=== PATIENT | female | born 1965 | race Caucasian/White ===

== ENCOUNTER 2024-03-27 19:07 | Emergency (ER) | payer MEDICARE, MEDICAID, SELFPAY ==
[2024-03-27 20:19] VITALS: BP 119/81; PULSE 90; RESP 16; TEMP 36.6; O2SAT 99; BMI 31.5
--- NOTE | 2024-03-27 20:27 | XR_ITS ---
Examination: CT brain head without contrast. 2-D sagittal coronal reconstructions Date and time of exam:March 27, 2024 at 2058 hrs. Comparison February 26, 2021 Indications: Patient fell one hour ago with injury to the head, head pain CTDI: vol (mGy):48.50 DLP: (mGycm):996 Technique: Multiple CT axial sections of the brain have been obtained, 5 mm slice thickness. Contrast has not been administered. 2-D sagittal, coronal reconstructions have been obtained Low dose protocols were performed. One or more of the following dose reduction techniques were used; automated exposure control, adjustment of the mA and/or KV according to patient size, use of iterative reconstruction technique. Findings: No significant ventricular enlargement. Intra-axial or extra-axial hemorrhage density is not seen. No mass effect or midline shift Basal cisterns are not remarkable. Fourth ventricle is midline. Cranial vault intact. Impression: Negative for acute hemorrhage, mass effect or midline shift
--- NOTE | 2024-03-27 20:27 | XR_ITS ---
Examination: CT cervical spine without contrast 2-D sagittal reconstructions 2-D coronal reconstructions 3-D reconstructions. Exam date and time:March 27, 2024 2100 hrs. Indications: Patient fell one hour ago with injury to the neck, neck pain CTDI:vol (mGy) 14.86 DLP: (mGycm) 352 Technique: Multiple 2 mm axial sections of the cervical spine have been obtained. The coronal and sagittal reconstructions have been obtained. 3-D reconstructions have been obtained. Low dose protocols were performed. One or more of the following dose reduction techniques were used; automated exposure control, adjustment of the mA and/or KV according to patient size, use of iterative reconstruction technique. Findings: Axial sections demonstrate intact base of the skull. C1 exhibit satisfactory relationship to the odontoid. No acute cervical vertebral body fracture seen. Alignment posterior spinous processes satisfactory. Impression: No acute cervical fracture.
--- NOTE | 2024-03-27 20:27 | XR_ITS ---
Examination: Knee, left , 3 views Technique: Knee AP, lateral, oblique 3 views Date and time of exam: 2033. Indications: Patient fell today with injury to the knee, knee pain. Findings: Moderate osteopenia Moderate narrowing medial joint space No fracture or dislocation Small to moderate knee effusion Impression: No fracture Small to moderate knee effusion
--- NOTE | 2024-03-27 20:27 | PD.EDRME ---
Rapid Medical Screening Exam RME Arrival date/time: 03/27/24 19:07 58-year-old female with past medical history of Parkinson's disease, seizures, asthma, obstructive bowel, GERD, renal disease, kidney stones,DM 2, hypothyroidism, schizophrenia, bipolar disorder, recreational drug use, presents emergency department complaining of left knee pain after fall in the bathroom with no LOC. Chief Complaint: Fall Time Seen by Provider: 03/27/24 20:19 Vital signs: Vital Signs Temperature 98 F 03/27/24 20:19 Pulse Rate 90 03/27/24 20:19 Respiratory Rate 16 03/27/24 20:19 Blood Pressure 119/81 03/27/24 20:19 Pulse Oximetry (%) 99 03/27/24 20:19 Oxygen Delivery Method Room Air 03/27/24 20:19 Vital signs reviewed by provider: Yes
--- NOTE | 2024-03-27 21:58 | EDNOTE_ITS ---
ED Fall Injury RME/HPI General Chief Complaint: Fall Stated Complaint: FALL Time Seen by Provider: 03/27/24 20:19 Arrival date/time: 03/27/24 19:07 RME / HPI RME / HPI Narrative: 03/27/24 19:07 58-year-old female with past medical history of Parkinson's disease, seizures, asthma, obstructive bowel, GERD, renal disease, kidney stones,DM 2, hypothyroidism, schizophrenia, bipolar disorder, recreational drug use, presents emergency department complaining of left knee pain after fall in the bathroom with no LOC. ----- Dr. Bertrand's Main ED Evaluation: 58yo female DESIRE from [facility] presents to the ED for a fall. Patient states she was walking through the doorway when she felt dizzy and fell forward, hitting her left knee. She endorses having left knee pain. She denies any head strikes or loss of consciousness. She denies any N/V, headache, neck pain, chest pain, abdominal pain, back pain or any other associated symptoms. She denies any tobacco or alcohol use. Patient does not know when her last tetanus shot was. PCP: [facility] Related Data Home Medications ?Medication ?Instructions ?Recorded ?Confirmed benztropine 0.5 mg tablet 1 mg PO BID 08/06/19 02/27/21 oxybutynin chloride 10 mg 5 mg PO HS 08/06/19 02/27/21 tablet,extended release 24 hr omeprazole 20 mg tablet,delayed 20 mg PO QDAY 04/14/20 02/27/21 release atorvastatin 10 mg tablet (Lipitor) 10 mg PO QDAY 02/27/21 02/27/21 cholecalciferol (vitamin D3) 50 50 mcg PO QDAY 02/27/21 02/27/21 mcg (2,000 unit) capsule (Vitamin D3) clonazepam 1 mg tablet 1 mg PO BID 02/27/21 02/27/21 divalproex 500 mg tablet,extended 500 mg PO BID 02/27/21 02/27/21 release 24 hr haloperidol 10 mg tablet 10 mg PO QDAY PRN Agitation 02/27/21 02/27/21 ibuprofen 200 mg tablet 200 mg PO BID PRN Pain 02/27/21 02/27/21 levothyroxine 112 mcg tablet 100 mcg PO ACBR 02/27/21 02/27/21 lithium carbonate 300 mg capsule 300 mg PO HS 02/27/21 02/27/21 lurasidone 120 mg tablet (Latuda) 120 mg PO QDAY 02/27/21 02/27/21 lurasidone 20 mg tablet (Latuda) 20 mg PO HS 02/27/21 02/27/21 terbinafine HCl 250 mg tablet 250 mg PO QDAY 02/27/21 02/27/21 Previous Rx's ?Medication ?Instructions ?Recorded esomeprazole magnesium 20 mg 20 mg PO QDAY #20 caps 01/02/22 capsule,delayed release (Nexium) ibuprofen 600 mg tablet 600 mg PO Q6H #30 tabs 09/05/22 Allergies Allergy/AdvReac Type Severity Reaction Status Date / Time Sulfa (Sulfonamide Allergy Mild FACIAL Verified 03/27/24 19:23 Antibiotics) SWELLING Review of Systems Review of Systems Systems Reviewed: All systems reviewed, normal except as documented Narrative Review of Systems: Gen: No fever, no chills, no weight loss EYES: No discharge, no visual changes, no pain HEENT: No ear pain, no congestion, no sore throat PULM: No shortness of breath, no cough, no congestion CV: No chest pain, no dyspnea on exertion, no palpitations GI: No nausea, no vomiting, no diarrhea, no pain, no constipation : No frequency, no urgency, no dysuria Musc/skel: No joint pain, no back pain Skin: No rash. Warm and dry. Psyc: No hallucinations, no depression Heme/Lymph: No easy bleeding or bruising tendencies Neuro: No weakness, no headache , + dizziness Past Medical History Past Medical History NEUROLOGIC: Positive Neurological Disorders, Parkinson's Disease and Seizures; Negative Cerebrovascular Accident, Transient Ischemic Attacks (TIA), Dementia, Alzheimer's Disease, Brain Tumor, Meningitis, Epilepsy, Multiple Sclerosis, Ce rebral Palsy, Amyotrophic Lateral Sclerosis (ALS/Sully Gehrig's), Guillain-Richland Syndrome, Spina Bifida, Paralysis, Peripheral Neuropathy, Garcia's Palsy, Subdural Hematoma, Migraine, Head Trauma, Spinal Cord Injury or Traumatic Brain Injury CARDIAC: Positive Hypotension; Negative Cardiac Disorders, Myocardial Infarction, Cardiac Arrhythmia, Atrial Fibrillation, Angina, Heart Murmur, Coronary Artery Disease, Atherosclerotic Heart Disease, Peripheral Vascular Disease, Hypercholesterolemia, Aneurysm, Congestive Heart Failure, Congenital Heart Disease, Valvular Heart Disease, Rheumatic Fever, Cardiomyopathy, Edema, Pericarditis, Cellulitis, Deep Vein Thrombosis, Hypertension or Varicose Veins RESPIRATORY: Negative Chronic Obstructive Pulmonary Disease (COPD), Asthma, Bronchitis, Emphysema, Pneumonia, Pulmonary Fibrosis, Cystic Fibrosis, Tuberculosis, Pulmonary Embolism, Pulmonary Edema or Sleep Apnea GASTROINTESTINAL: Positive Gastrointestinal Disorders, Gall Bladder Disease, Obstructive Bowel and Gastroesophageal Reflux Disease; Negative Hepatitis, Cirrhosis, Pancreatitis, Celiac Disease, Gastrointestinal Bleed, Esophageal Varices, Maloney's Esophagus, Colitis, Ulcerative Colitis, Diverticulitis, Diverticulosis, Ulcer, Colorectal Cancer, Irritable Bowel, Crohn's Disease, Hiatal Hernia, Hemorrhoids or Obesity GENITOURINARY: Positive Genitourinary Disorders and Kidney Stones; Negative Renal Disease, Polycystic Kidney Disease, Neurogenic Bladder, Inguinal Hernia, Dialysis, Prostate Cancer or Benign Prostatic Hyperplasia REPRODUCTIVE: Negative Breast Cancer, Endometriosis, Genital Herpes, Gonorrhea, Pelvic Inflammatory Disease, Previous Pregnancies, Syphilis, Testicular Cancer or Uterine Prolapse MUSCULOSKELETAL: Positive Musculoskeletal Disorders and Arthritis; Negative Muscular Dystrophy, Myasthenia Gravis, Marfan's Syndrome, Bone Cancer, Rheumatoid Arthritis, Osteoporosis, Degenerative Disk Disease, Gout, Scoliosis, Carpal Tunnel Syndrome, Fibromyalgia, Fractures, Degenerative Joint Disease, Osteomyelitis or Poliovirus ENT: Negative Cataracts, Glaucoma, Blind, Retinal Detachment, Macular Degeneration, Ear Infection, Deafness, Head Trauma or Eye Prosthesis ENDOCRINE: Positive Endocrine Disorders and Hypothyroidism; Negative Diabetes Mellitus Type 1, Diabetes Mellitus Type 2, Hypoglycemia, Anthony's Syndrome, Nez Perce's Disease, Hyperthyroidism, Parathyroid Disease, Pituitary Disease, Systemic Lupus Erythematosus, Syndrome of Inappropriate Antidiuretic Hormone (SIADH), Adrenal Disease or Graves' Disease HEMATOLOGIC: Negative Blood Disorders, Anemia, Leukemia, Hemophilia, Thalassemia, Sickle Cell Disease or Clotting Problems PSYCHO/SOCIAL: Positive Psychiatric Problems, Schizophrenia, Recreational Drug Use, Bipolar Disorder and Behavior Problems; Negative Depression, Anxiety, Self-Mutilation, Attention Deficit Disorder, Attention Deficit Hyperactivity Disorder, Depression, Post Traumatic Stress Disorder or Eating Disorder OTHER HISTORY: Positive Hospitalization and Falls; Negative Autoimmune Disease, Down Syndrome, Autism, Developmental Delay, Shingles, Blood Transfusions, Blood Transfusion Reaction, Anesthesia Reactions, Organ Transplant, Chemotherapy, Radiation Therapy, Hyperbaric Therapy, MRSA, VRSA, Vancomycin-Resistant Enterococci, Human Immunodeficiency Virus (HIV), Chicken Pox, Measles, Mumps, Rubella (Icelandic Measles), Pertussis, Clostridium Difficile, Cancer, Breast Cancer, Cervical Cancer, Colorectal Cancer, Lung Cancer, Ovarian Cancer, Prostate Cancer or Testicular Cancer Family History FAMILY HISTORY: Positive Family Cardiac Disorders and Family Cancer; Negative Family Psychiatric Problems, Family Respiratory Disorders, Family Gastrointestinal Problems, Family Surgery or Family Anesthesia Reaction Surgical History SURGICAL: Positive Abdominal Surgery and Tubal Ligation; Negative Cardiac Surgery, Open Heart Surgery, Coronary Artery Bypass Graft, Valve Replacement, Vascular Surgery, Coronary Stent, Cardiac Catheterization, Pacemaker, Angiogram, Auto Implanted Cardiovert Defib, Carotid Endarterectomy, Endocrine Surgery, Thyroidectomy, Ear Surgery, Tympanostomy Tube, Eye Surgery, Nose Surgery, Oral Surgery, Tonsillectomy, Adenoidectomy, Cochlear Implant, Corneal Transplant, Throat Surgery, Tracheostomy, Gastric Bypass Surgery, Gastrostomy, Bowel Surgery, Nephrectomy, Transurethral Resection, Joint Replacement, Amputation, Open Reduction Internal Fixation, Arthroscopy, Neurologic Surgery, Brain Shunt, Mastectomy, Lumpectomy, Hysterectomy, Section, Vasectomy or Organ Transplant Social History SMOKING STATUS: Never smoker SECOND HAND EXPOSURE: No SUBSTANCE USE: does not use ED Exam Narrative Physical exam: GEN. APPEARANCE: Patient is alert awake oriented x3 under no distress, laying down comfortably at 30-45?; does not look ill/ toxic. Patient has good eye contact. Patient is cooperative. Patient is a typical bipolar schizophrenic and tries her best to answer my questions accurately. VITALS: All vitals were reviewed and the pulse ox is 99% on room air, which is normal according to my interpretation. HEENT: Normocephalic, atraumatic and nontender. Pupils are equal and reactive to light and accommodation. Oral mucosa are moist. NECK: Supple, nontender, no meningismus, no JVD. CHEST: Nontender on palpation, no deformity and no crepitus. CARDIOVASCULAR: Heart regular rhythm no murmur or gallop rub or extra beats; not tachycardic. LUNGS: Clear to auscultation bilaterally with symmetrical chest rise. No laboring tachypnea or wheezing. No intercostal subcostal retraction. No rales and no rhonchi. ABDOMEN: Soft, flat, nontender at all, no guarding or rebound tenderness. There are no abnormal masses palpated. No pulsatile masses or bruits. Active and normal bowel sounds. GENITALIA: Not examined. RECTAL EXAM: Not done. EXTREMITIES: Nontender. No edema. No cyanosis. There's a quarter-sized abrasion on the anterior left knee with poor ROM, but no significant soft tissue swelling, redness or warmness. SKIN: Warm and dry, no rashes noted. MUSCULOSKELETAL: No lumbar or midline bony tenderness. There is no CVA tenderness. No paraspinal muscle spasm or tenderness. NEURO: Cranial nerves II through XII grossly intact. There is no focalization. GCS is 15. PSYCHIATRIC: Patient is in normal mood and affect, cooperative. LYMPHATICS: No major lymphadenopathy noted. Course Quality Measures none Orders Category Date Time Status CT cervical spine wo con Stat Exams 03/27/24 20:[address] head/brain wo con Stat Exams 03/27/24 20: Completed XR knee LT 3V Stat Exams 03/27/24 20: Completed Tet,Diphth,Pertuss(Acell)-Tdap [Boostrix Vacc] Med 03/27/24 22:10 Discontinued 0.5 ml IMI .ONCE ONE Vital Signs Vital signs: Vital Signs Temperature 98 F 03/27/24 20:19 Pulse Rate 90 03/27/24 20:19 Respiratory Rate 16 03/27/24 20:19 Blood Pressure 119/81 03/27/24 20:19 Pulse Oximetry (%) 99 03/27/24 20:19 Oxygen Delivery Method Room Air 03/27/24 20:19 Fall MDM Narrative MDM Narrative:: Scribe Attestation: 03/27/24 Mirian Mendes am scribing for and in the presence of Dr. Bertrand. Patient states that she got dizzy and then she fell forward with no loss of consciousness. She remembers all the facts. This happened at [facility] just prior to arrival. She denies loss of consciousness or loss of memory. She did not hit her head nor she has a headache. She denies any neck pain. She denies any chest pain or abdominal pain or lower back pain. She does complain of left knee pain where there is a quarter size abrasion on the anterior aspect without active bleed. There is no soft tissue swelling or deformity. N/V is intact and she moves her knee without any hesitation or difficulty. The triage PA had ordered a CAT scan of the brain as well as C-spine which came back all negative according to the radiologist. He had also ordered a left knee x-ray which was also read negative by the radiologist. Therefore we will screen that 1 then put a thin layer of Neosporin on it and bandaged. She will be getting a tetanus shot as well. Provider Notation: Although this document has been carefully reviewed, there may still be some phonetic and other typographical errors. These errors are purely grammatical due to imperfections in the software program and should not be construed in any way to compromise the substance of the patient's medical care during this visit. Patient data External records reviewed:: [facility] previous records (Per chart review, patient was seen here on 09/17/23 for schizophrenia.) Clinical information provided by:: patient Social determinants that could affect healthcare access:: housing (Pt resides at a [facility] care [facility] Patient has the following chronic illnesses:: Parkinson's disease, GERD, schizophrenia How is presenting disease/condition affected by chronic disease/condition?: uneffected by Evaluation data The following diagnostics were reviewed and interpreted by me:: radiology exam(s) Lab and/or radiology exams considered but not ordered:: none Interpretation Summary: [facility] Report Signed Patient: MICHELLE SAXENA Record#: [id number] Birthdate: 1965 Age/Sex: 58 / F Location: [facility] Attending Dr: Ordering Physician: Olga BENOIT)Luke Date of Service: 03/27/24 Procedure(s): CT cervical spine wo con Accession Number(s): [id number] cc: Juan Ramon Ly DO; Toni Hall MD; Olga Hawkins (RAMONA)Luke~ Examination: CT cervical spine without contrast 2-D sagittal reconstructions 2-D coronal reconstructions 3-D reconstructions. Exam date and time:March 27, 2024 2100 hrs. Indications: Patient fell one hour ago with injury to the neck, neck pain CTDI:vol (mGy) 14.86 DLP: (mGycm) 352 Technique: Multiple 2 mm axial sections of the cervical spine have been obtained. The coronal and sagittal reconstructions have been obtained. 3-D reconstructions have been obtained. Low dose protocols were performed. One or more of the following dose reduction techniques were used; automated exposure control, adjustment of the mA and/or KV according to patient size, use of iterative reconstruction technique. Findings: Axial sections demonstrate intact base of the skull. C1 exhibit satisfactory relationship to the odontoid. No acute cervical vertebral body fracture seen. Alignment posterior spinous processes satisfactory. Impression: No acute cervical fracture. Dictated By: Toni Hall MD Signed By: <Electronically signed by Toni Hall MD in OV> 03/27/242116 [facility] Report Signed Patient: MICHELLE SAXENA. Record#: [id number] Birthdate: 1965 Age/Sex: 58 / F Location: [facility] Attending Dr: Ordering Physician: Olga Hawkins (RAMONA)Luke Date of Service: 03/27/24 Procedure(s): CT head/brain wo con Accession Number(s): [id number] cc: Juan Ramon Ly DO; Toni Hall MD; Olga Hawkins ([employer]),Luke RGEENE~ Examination: CT brain head without contrast. 2-D sagittal coronal reconstructions Date and time of exam:March 27, 2024 at 2058 hrs. Comparison February 26, 2021 Indications: Patient fell one hour ago with injury to the head, head pain CTDI: vol (mGy):48.50 DLP: (mGycm):996 Technique: Multiple CT axial sections of the brain have been obtained, 5 mm slice thickness. Contrast has not been administered. 2-D sagittal, coronal reconstructions have been obtained Low dose protocols were performed. One or more of the following dose reduction techniques were used; automated exposure control, adjustment of the mA and/or KV according to patient size, use of iterative reconstruction technique. Findings: No significant ventricular enlargement. Intra-axial or extra-axial hemorrhage density is not seen. No mass effect or midline shift Basal cisterns are not remarkable. Fourth ventricle is midline. Cranial vault intact. Impression: Negative for acute hemorrhage, mass effect or midline shift Dictated By: Toni Hall MD Signed By: <Electronically signed by Toni Hall MD in OV> 03/27/242114 ------ [facility] Report Signed Patient: MICHELLE SAXENA. Record#: [id number] Birthdate: 1965 Age/Sex: 58 / F Location: [facility] Attending Dr: Ordering Physician: Olga BENOIT)Luke Date of Service: 03/27/24 Procedure(s): XR knee LT 3V Accession Number(s): [id number] cc: Juan Ramon Ly DO; Toni Hall MD; Olga BENOIT),Luke GREENE~ Examination: Knee, left , 3 views Technique: Knee AP, lateral, oblique 3 views Date and time of exam: 2033 hrs. Indications: Patient fell today with injury to the knee, knee pain. Findings: Moderate osteopenia Moderate narrowing medial joint space No fracture or dislocation Small to moderate knee effusion Impression: No fracture Small to moderate knee effusion Dictated By: Toni Hall MD Signed By: <Electronically signed by Toni Hall MD in OV> 03/27/242123 Medications / Prescriptions Medications or Prescriptions considered but not ordered:: none Medication administrations:: Medication Administration History Discontinued Medications Diphtheria/Tetanus/Acell Pertussis (Diphth,Pertuss(Acell),Tet Vac 0.5 Ml Vial) 0.5 ml IMi .ONCE ONE Stop: 03/27/24 22:11 see above, if any Consultations Consultation(s) initiated? (list below): No Diagnosis Fall Differential Diagnosis: other (ICH, cervical fx, knee fx, knee dislocation) Most likely diagnosis given after review of the tests above:: see below Admission Indicated Admission indicated?: not indicated Admission Request Was there a request for admission?: No Disposition Plan Disposition Plan: Discharge Discharge Attestation Discharge Attestation: The patient and all family members were given an opportunity to ask questions and understood the discharge instructions. Discharge instructions specifically effects, indications for sooner follow up or return to the emergency department, and the expected course of current diagnosis. Patient condition: Stable Discharge Plan Plan Patient Disposition: HOME (Self Care) Prescriptions/Referrals Prescriptions/Med Rec: No Action benztropine 0.5 mg Tablet 1 mg PO BID oxybutynin chloride 10 mg Tablet Extended Release 24hr 5 mg PO HS omeprazole 20 mg Tablet,Delayed Release (Dr/Ec) 20 mg PO QDAY atorvastatin [Lipitor] 10 mg Tablet 10 mg PO QDAY clonazepam 1 mg Tablet 1 mg PO BID terbinafine HCl 250 mg Tablet 250 mg PO QDAY lithium carbonate 300 mg Capsule 300 mg PO HS divalproex 500 mg Tablet Extended Release 24 Hr 500 mg PO BID haloperidol 10 mg Tablet 10 mg PO QDAY PRN (Reason: Agitation) ibuprofen 200 mg Tablet 200 mg PO BID PRN (Reason: Pain) cholecalciferol (vitamin D3) [Vitamin D3] 50 mcg (2,000 unit) Capsule 50 mcg PO QDAY Latuda 20 mg Tablet 20 mg PO HS Latuda 120 mg Tablet 120 mg PO QDAY levothyroxine 112 mcg tablet 100 mcg PO ACBR esomeprazole magnesium [Nexium] 20 mg capsule,delayed release(DR/EC) 20 mg PO QDAY Qty: 20 0RF ibuprofen 600 mg tablet 600 mg PO Q6H Qty: 30 0RF Referrals: Juan Ramon Ly DO [Primary Care Provider] - 03/30/24 10:00 am Problem List Clinical Impression: Schizophrenia, Seizure disorder, Bipolar 1 disorder, Contusion of knee, left, Abrasion of knee, left Patient/Caregiver Discharge Instructions Education Materials: ED Abrasions Additional Instructions: Apply a thin layer of Neosporin to the abrasion of your left knee twice a day. You may keep it covered during the daytime but at night you need to keep it open to air. Follow-up with your doctor in 2 days for recheck and tell them that you have gotten a tetanus shot here today. Print Language: Italian Stand Alone Forms: Geraldine Award Info., Patient Portal Info Letter Vaccines Vaccines Given During Stay: TDaP
[2024-03-27 22:26] VITALS: BP 112/80; PULSE 82; RESP 18; TEMP 36.7; O2SAT 98
[2024-03-27] MEDS: DIPHTH,PERTUSS(ACELL),TET VAC 0.5 ML VIAL IMi (22:26)
== END 2024-03-27 22:53 | disposition home or self-care (01) ==
PROVIDERS: Emergency Provider Emergency Medicine; PCP Psychiatry & Neurology Psychiatry
DX: S80.212A Abrasion, left knee, initial encounter (principal); S80.02XA Contusion of left knee, initial encounter; F31.9 Bipolar disorder, unspecified; F20.9 Schizophrenia, unspecified; R56.9 Unspecified convulsions; S09.90XA Unspecified injury of head, initial encounter; S19.9XXA Unspecified injury of neck, initial encounter; W19.XXXA Unspecified fall, initial encounter; Y93.01 Activity, walking, marching and hiking; Z23 Encounter for immunization
CPT/HCPCS: 70450; 72125; 73562; 90471; 90715; 99284

== ENCOUNTER 2024-04-14 03:50 | Emergency (ER) | payer MEDICARE, MEDICAID, SELFPAY ==
[2024-04-14 03:51] VITALS: PULSE 94; O2SAT 96
[2024-04-14 03:56] VITALS: BP 116/83; PULSE 90; RESP 18; TEMP 36.7; O2SAT 99; BMI 29.2
--- NOTE | 2024-04-14 04:05 | EDRME_ITS ---
Rapid Medical Screening Exam [facility] Arrival date/time: 04/14/24 03:50 58F with history of Parkinson's, seizures, asthma, SBo, GERD, CKD, DM, hypothyroidism, psyc, drug/alcohol abuse and tubal ligation presents to ED with vaginal/rectal itching/burning and pain after she's scratched at them a lot. Possible dysuria. Chief Complaint: Urogenital-Female Vital signs: Vital Signs Temperature 98.1 F 04/14/24 03:56 Pulse Rate 90 04/14/24 03:56 Respiratory Rate 18 04/14/24 03:56 Blood Pressure 116/83 04/14/24 03:56 Pulse Oximetry (%) 99 04/14/24 03:56 Oxygen Delivery Method Room Air 04/14/24 03:56
[2024-04-14 05:07] LABS: Collection Type, Urine Clean Catch; RBC,Urine 0 /hpf (0-3)
[2024-04-14 05:15] LABS: Basophils % (Auto) 0 % (0-2.5); Eosinophils % (Auto) 0 % (0-10); Hematocrit 34.9 % (36.0-46.0); Hemoglobin 11.2 g/dL (12.0-16.0); Immature Granulocytes % (Auto) 1 % (0-0); Immature Granulocytes Auto 0.08 Thou/mm3 (0.00-0.00); Lymphocytes # (Auto) 2.1 Thou/mm3 (1.0-4.8); Lymphocytes % (Auto) 35 % (10-50); Mean Corpuscular HGB Conc 32.1 g/dl (31.0-37.0); Mean Corpuscular Hemoglobin 28.3 pg (25.0-35.0); Mean Corpuscular Volume 88 fL (80-100); Monocytes # (Auto) 0.5 Thou/mm3 (0.0-0.8); Monocytes % (Auto) 8 % (0-12); Neutrophils # (Auto) 3.3 Thou/mm3 (1.8-7.7); Neutrophils % (Auto) 55 % (37-80); Nucleated Red Blood Cell % 0 /100 WBC (0); Platelet Count 309 Thou/mm3 (140-440); RDW Standard Deviation 47.9 fL (36.4-46.3); Red Blood Count 3.96 Miln/mm3 (4.00-5.20)
[2024-04-14 05:29] LABS: Bacteria,Urine Rare; Bilirubin,Urine Negative (Negative); Blood,Urine Negative (Negative); Clarity,Urine Turbid (Clear/Hazy); Color,Urine Yellow (Lt Yel-Yel); Culture Indicated,Urine Not Indicated; Glucose, Urine Negative (Negative); Ketones,Urine Negative (Negative); Leukocyte Esterase,Urine Positive (Negative); Nitrite,Urine Negative (Negative); Protein,Urine Trace (Neg - Trace); Specific Gravity,Urine 1.023 (1.001-1.035); Squamous Epithelial Cell,Urine 1 /hpf (0-5); Urobilinogen,Urine Negative mg/dL (0.0-1.0); WBC,Urine 2 /hpf (0-5)
[2024-04-14 05:30] LABS: Amphetamine/Methamp Scrn,U Negative (Negative); Barbiturate Screen,Urine Negative (Negative); Benzodiazepines Screen,Urine Negative (Negative); Benzoylecgonine Screen, Ur Negative (Negative); Fentanyl Screen,Urine Negative (Negative); Opiate Screen,Urine Negative (Negative); THC Screen,Urine Negative (Negative)
[2024-04-14 05:51] LABS: Alanine Aminotransferase 10 U/L (10-49); Albumin, Serum 4.6 gm/dL (3.5-5.0); Albumin/Globulin Ratio 2.2 (1.2-2.2); Alkaline Phosphatase 93 U/L (46-116); Anion Gap 8 (7-16); Aspartate Amino Transferase 18 U/L (0-34); BUN/Creatinine Ratio 20 Ratio (12-20); Bilirubin,Total 0.2 mg/dL (0.3-1.2); Blood Urea Nitrogen 18 mg/dL (9-23); Calcium 9.2 mg/dL (8.3-10.6); Calcium (Corrected) 9.2 mg/dL (8.5-10.1); Carbon Dioxide 27.3 mMol/L (20.0-31.0); Chloride 108 mMol/L (98-107); Creatinine (Component) 0.9 mg/dL (0.6-1.3); Estimated Creatinine Clearance 60.4 mL/min (>60); Globulin 2.1 gm/dL (2.3-3.5); Glucose 105 mg/dL (74-106); Osmolality,Calculated 286 (275-295); Potassium 4.3 mMol/L (3.4-5.1); Sodium 143 mMol/L (136-145); Total Protein 6.7 gm/dL (5.7-8.2); eGFR > 60 See Note
[2024-04-14 06:09] LABS: Syphilis Nonreactive (Nonreactive)
[2024-04-14 07:15] VITALS: BP 119/81; PULSE 82; RESP 18; TEMP 36.7; O2SAT 99
--- NOTE | 2024-04-14 07:17 | PC.NURSE ---
Pt. resting in bed in room 11, pt. states she is here from [facility], pt. states the food there made her sick. Pt. states she usually walks with a walker. Pt. states she has burning when she urinates and a little bit of blood when she pooped. Pt. states they gave her the wrong toilet paper and it had perfume on it. Pt. states she has schizophrenia.
--- NOTE | 2024-04-14 08:04 | PC.NURSE ---
Pt. cleaned and brief changed, pt. has skin breakdown just below her labia and to her buttocks and around her anus. Pt. states she put Vaseline down there because she was itching and felt like she had worms. Pt. states it washburn when she urinates. Pt. states there was a little blood when she pooped.
--- NOTE | 2024-04-14 08:10 | PC.NURSE ---
Dr. Neville is bedside talking with pt.
--- NOTE | 2024-04-14 08:26 | PD.EDFMALE ---
ED Female Urogenital RME/HPI General Chief complaint: Urogenital-Female Stated complaint: Vaginal/rectal burning Time Seen by Provider: 04/14/24 05:03 Arrival date/time: 04/14/24 03:50 Limitations: no limitations RME / HPI RME / HPI Narrative: 04/14/24 03:50 58F with history of Parkinson's, seizures, asthma, SBo, GERD, CKD, DM, hypothyroidism, psyc, drug/alcohol abuse and tubal ligation presents to ED with vaginal/rectal itching/burning and pain after she's scratched at them a lot. Possible dysuria. DR. NEVILLE MAIN ED EVALUATION: 58 year old female with history of Parkinson's disease, hyperlipidemia, hypothyroidsm, GERD, schizophrenia presents to the ED [facility] from [facility] for complaint of vaginal/rectal burning pain today. States vaginal pain is worse while urinating. Additionally reports she had a small amount of blood in stool today which she noted began after poking her rectum due to itching sensation and I though I had worms . No other complaints reported. Denies fevers, chills, abdominal pain, n/v. Related Data Home Medications ?Medication ?Instructions ?Recorded ?Confirmed benztropine 0.5 mg tablet 1 mg PO BID 08/06/19 02/27/21 oxybutynin chloride 10 mg 5 mg PO HS 08/06/19 02/27/21 tablet,extended release 24 hr omeprazole 20 mg tablet,delayed 20 mg PO QDAY 04/14/20 02/27/21 release atorvastatin 10 mg tablet (Lipitor) 10 mg PO QDAY 02/27/21 02/27/21 cholecalciferol (vitamin D3) 50 50 mcg PO QDAY 02/27/21 02/27/21 mcg (2,000 unit) capsule (Vitamin D3) clonazepam 1 mg tablet 1 mg PO BID 02/27/21 02/27/21 divalproex 500 mg tablet,extended 500 mg PO BID 02/27/21 02/27/21 release 24 hr haloperidol 10 mg tablet 10 mg PO QDAY PRN Agitation 02/27/21 02/27/21 ibuprofen 200 mg tablet 200 mg PO BID PRN Pain 02/27/21 02/27/21 levothyroxine 112 mcg tablet 100 mcg PO ACBR 02/27/21 02/27/21 lithium carbonate 300 mg capsule 300 mg PO HS 02/27/21 02/27/21 lurasidone 120 mg tablet (Latuda) 120 mg PO QDAY 02/27/21 02/27/21 lurasidone 20 mg tablet (Latuda) 20 mg PO HS 02/27/21 02/27/21 terbinafine HCl 250 mg tablet 250 mg PO QDAY 02/27/21 02/27/21 Previous Rx's ?Medication ?Instructions ?Recorded esomeprazole magnesium 20 mg 20 mg PO QDAY #20 caps 01/02/22 capsule,delayed release (Nexium) ibuprofen 600 mg tablet 600 mg PO Q6H #30 tabs 09/05/22 nitrofurantoin 100 mg PO Q12H 7 days #14 caps 04/14/24 monohydrate/macrocrystals 100 mg capsule (Macrobid) phenazopyridine 200 mg tablet 200 mg PO TID 6 doses #6 tabs 04/14/24 (Pyridium) Allergies Allergy/AdvReac Type Severity Reaction Status Date / Time Sulfa (Sulfonamide Allergy Mild FACIAL Verified 04/14/24 03:53 Antibiotics) SWELLING Review of Systems Review of Systems Narrative Review of Systems: GEN: No fever, no chills, no weight loss EYES: No discharge, no visual changes, no pain HEENT: No ear pain, no congestion, no sore throat PULM: No shortness of breath, no cough, no congestion CV: No chest pain, no dyspnea on exertion, no palpitations GI: No nausea, no vomiting, no diarrhea, no pain, no constipation : +rectal and vaginal burning pain, worse with urinating. No frequency, no urgency, no dysuria MUSC/SKEL: No joint pain, no back pain SKIN: No rash NEURO: No weakness, no headache Past Medical History Past Medical History NEUROLOGIC: Positive Neurological Disorders, Parkinson's Disease and Seizures CARDIAC: Positive Hypotension GASTROINTESTINAL: Positive Gastrointestinal Disorders, Gall Bladder Disease and Obstructive Bowel GENITOURINARY: Positive Genitourinary Disorders and Kidney Stones MUSCULOSKELETAL: Positive Musculoskeletal Disorders and Arthritis ENDOCRINE: Positive Endocrine Disorders and Hypothyroidism PSYCHO/SOCIAL: Positive Psychiatric Problems, Schizophrenia, Recreational Drug Use, Bipolar Disorder and Behavior Problems OTHER HISTORY: Positive Hospitalization and Falls Family History FAMILY HISTORY: Positive Family Cardiac Disorders and Family Cancer Surgical History SURGICAL: Positive Abdominal Surgery and Tubal Ligation Social History SMOKING STATUS: Former smoker SECOND HAND EXPOSURE: No SUBSTANCE USE: does not use ED Exam General Limitations: Present no limitations General appearance: Present alert and in no apparent distress Head Head exam: Present atraumatic, normocephalic and normal inspection Eye Eye exam: Present normal appearance, PERRL and EOMI ENT ENT exam: Present normal exam, normal oropharynx and mucous membranes moist Neck Neck exam: Present normal inspection, full ROM and trachea midline Chest Chest inspection: Present normal inspection and symmetric chest wall rise Respiratory Respiratory exam: Present normal lung sounds bilaterally Cardiovascular Cardiovascular exam: Present regular rate, normal rhythm and normal heart sounds Abdominal Exam Abdominal exam: Present soft and normal bowel sounds External exam: Present other (There is skin breakdown to the perineal area as well as perineum and medial thighs, no active bleeding ) Extremities Exam Extremities exam: Present normal inspection and full ROM Back Exam Back exam: Present normal inspection and full ROM Neurological Exam Neurological exam: Present alert, oriented X3 and CN II-XII intact Psychiatric Psychiatric exam: Present normal affect and normal mood Skin Skin exam: Present warm, dry, intact and normal color Course Quality Measures none Orders Category Date Time Status CBC Stat Lab 04/14/24 04:33 Completed CMP [Comprehensive Metabolic Panel] Stat Lab 04/14/24 04:33 Completed Drug Screen,Urine Stat Lab 04/14/24 04:22 Completed Syphilis Stat Lab 04/14/24 04:33 Completed Urinalysis, C/S if Indicated Stat Lab 04/14/24 04:22 Completed Vital Signs Vital signs: Vital Signs Temperature 98.1 F 04/14/24 03:56 Pulse Rate 90 04/14/24 03:56 Respiratory Rate 18 04/14/24 03:56 Blood Pressure 116/83 04/14/24 03:56 Pulse Oximetry (%) 99 04/14/24 03:56 Oxygen Delivery Method Room Air 04/14/24 03:56 Pulse ox is 99% on room air which is adequate. Urogenital - Female MDM Narrative MDM Narrative:: Roopa Mckee am scribing for and in the presence of Dr. Neville. Patient data External records reviewed:: [facility] previous records (I reviewed ED visit on 03/27/2024 ) and EMS form Clinical information provided by:: patient Social determinants that could affect healthcare access:: mental health Patient has the following chronic illnesses:: Parkinson's disease, hyperlipidemia, hypothyroidsm, GERD, schizophrenia How is presenting disease/condition affected by chronic disease/condition?: uneffected by Evaluation data The following diagnostics were reviewed and interpreted by me:: lab results Lab and/or radiology exams considered but not ordered:: None Interpretation Summary: No elevtaed WBC Electrolytes WNL Utox negative Medications / Prescriptions Medications or Prescriptions considered but not ordered:: None Medication administrations:: None Consultations Consultation(s) initiated? (list below): No Diagnosis Urogenital Female Differential Diagnosis: urinary tract infection, bacterial vaginosis and cystitis Most likely diagnosis given after review of the tests above:: UTI Skin breakdown Admission Indicated Admission indicated?: not indicated Admission Request Was there a request for admission?: No Disposition Plan Disposition Plan: Discharge Discharge Attestation Discharge Attestation: The patient and all family members were given an opportunity to ask questions and understood the discharge instructions. Discharge instructions specifically effects, indications for sooner follow up or return to the emergency department, and the expected course of current diagnosis. Patient condition: Stable Discharge Plan Plan Patient Disposition: HOME (Self Care) Disposition Comment: Stable for discharge Patient condition on transfer: Stable Prescriptions/Referrals Prescriptions/Med Rec: New nitrofurantoin monohyd/m-cryst [Macrobid] 100 mg capsule 100 mg PO Q12H 7 Days Qty: 14 0RF Rx Instructions: must administer with a meal/food phenazopyridine [Pyridium] 200 mg tablet 200 mg PO TID Qty: 6 0RF No Action benztropine 0.5 mg Tablet 1 mg PO BID oxybutynin chloride 10 mg Tablet Extended Release 24hr 5 mg PO HS omeprazole 20 mg Tablet,Delayed Release (Dr/Ec) 20 mg PO QDAY atorvastatin [Lipitor] 10 mg Tablet 10 mg PO QDAY clonazepam 1 mg Tablet 1 mg PO BID terbinafine HCl 250 mg Tablet 250 mg PO QDAY lithium carbonate 300 mg Capsule 300 mg PO HS divalproex 500 mg Tablet Extended Release 24 Hr 500 mg PO BID haloperidol 10 mg Tablet 10 mg PO QDAY PRN (Reason: Agitation) ibuprofen 200 mg Tablet 200 mg PO BID PRN (Reason: Pain) cholecalciferol (vitamin D3) [Vitamin D3] 50 mcg (2,000 unit) Capsule 50 mcg PO QDAY Latuda 20 mg Tablet 20 mg PO HS Latuda 120 mg Tablet 120 mg PO QDAY levothyroxine 112 mcg tablet 100 mcg PO ACBR esomeprazole magnesium [Nexium] 20 mg capsule,delayed release(DR/EC) 20 mg PO QDAY Qty: 20 0RF ibuprofen 600 mg tablet 600 mg PO Q6H Qty: 30 0RF Referrals: No Primary/Family,Physician [Primary Care Provider] - In 1 week Problem List Clinical Impression: Urinary tract infection, Skin breakdown Patient/Caregiver Discharge Instructions Discharge Activity: activity as tolerated Education Materials: Urinary Tract Infections in Women Additional Instructions: You have skin breakdown in your private parts. You should cover these areas with Vaseline so that they can heal. Do this until you are feeling better and they are healing You have a urinary tract infection. I have ordered an antibiotic for you which is waiting at your pharmacy and is called Macrobid. You should take the Macrobid twice per day until they are completely gone even if you are feeling better before that. I also ordered a medicine called Pyridium. This medicine will help with the stinging that you feel when you pee but it will also turn your urine a dark orange is red. This is normal when taking this medication. This should not be a cause for alarm. Please return to the ER if you are feeling worse in any way or if you fail to improve within the next several days Follow-up with your primary care doctor within the next several days please Print Language: Kuwaiti Stand Alone Forms: [facility] Award Info., Patient Portal Info Letter
--- NOTE | 2024-04-14 08:42 | PC.NURSE ---
called [facility] to let them know that pt. is ready to be discharged. [phone].
[2024-04-14 09:57] VITALS: BP 120/79; PULSE 75; RESP 18; TEMP 36.8; O2SAT 97
== END 2024-04-14 09:57 | disposition home or self-care (01) ==
PROVIDERS: Physician Assistant; Emergency Provider Emergency Medicine
DX: N39.0 Urinary tract infection, site not specified (principal); I12.9 Hypertensive chronic kidney disease with stage 1 through stage 4 chronic kidney disease, or unspecified chronic kidney disease; N18.9 Chronic kidney disease, unspecified; E11.22 Type 2 diabetes mellitus with diabetic chronic kidney disease; E03.9 Hypothyroidism, unspecified; K21.9 Gastro-esophageal reflux disease without esophagitis; E78.5 Hyperlipidemia, unspecified; G20.A1 Parkinson's disease without dyskinesia, without mention of fluctuations; F20.9 Schizophrenia, unspecified
CPT/HCPCS: 36415; 80053; 80307; 81001; 85025; 86780; 99283

== ENCOUNTER 2024-06-16 14:49 | Emergency (ER) | payer MEDICARE, MEDICAID, SELFPAY ==
[2024-06-16 14:50] VITALS: PULSE 94; O2SAT 98
[2024-06-16 15:13] VITALS: BP 114/74; PULSE 89; RESP 18; TEMP 37.3; O2SAT 98; BMI 30.6
--- NOTE | 2024-06-16 15:28 | PD.EDNV ---
Nausea/Vomit./Diarrhea-RME/HPI General Chief complaint: Nausea/Vomiting/Diarrhea Stated complaint: diarrhea x 1 week, Time Seen by Provider: 06/16/24 15:06 Arrival date/time: 06/16/24 14:49 RME / HPI RME / HPI Narrative: 59-year-old female patient with significant history of seizure disorder, schizophrenia, hypothyroidism, was brought in by family for evaluation regarding diarrhea. Patient's been having diarrhea for a while, nonbloody, associated with vomiting. Also complained of not feeling well. Denies any fever denies any abdominal pain denies any other complaints. Related Data Home Medications ?Medication ?Instructions ?Recorded ?Confirmed benztropine 0.5 mg tablet 1 mg PO BID 08/06/19 02/27/21 oxybutynin chloride 10 mg 5 mg PO HS 08/06/19 02/27/21 tablet,extended release 24 hr omeprazole 20 mg tablet,delayed 20 mg PO QDAY 04/14/20 02/27/21 release atorvastatin 10 mg tablet (Lipitor) 10 mg PO QDAY 02/27/21 02/27/21 cholecalciferol (vitamin D3) 50 50 mcg PO QDAY 02/27/21 02/27/21 mcg (2,000 unit) capsule (Vitamin D3) clonazepam 1 mg tablet 1 mg PO BID 02/27/21 02/27/21 divalproex 500 mg tablet,extended 500 mg PO BID 02/27/21 02/27/21 release 24 hr haloperidol 10 mg tablet 10 mg PO QDAY PRN Agitation 02/27/21 02/27/21 ibuprofen 200 mg tablet 200 mg PO BID PRN Pain 02/27/21 02/27/21 levothyroxine 112 mcg tablet 100 mcg PO ACBR 02/27/21 02/27/21 lithium carbonate 300 mg capsule 300 mg PO HS 02/27/21 02/27/21 lurasidone 120 mg tablet (Latuda) 120 mg PO QDAY 02/27/21 02/27/21 lurasidone 20 mg tablet (Latuda) 20 mg PO HS 02/27/21 02/27/21 terbinafine HCl 250 mg tablet 250 mg PO QDAY 02/27/21 02/27/21 Previous Rx's ?Medication ?Instructions ?Recorded esomeprazole magnesium 20 mg 20 mg PO QDAY #20 caps 01/02/22 capsule,delayed release (Nexium) ibuprofen 600 mg tablet 600 mg PO Q6H #30 tabs 09/05/22 phenazopyridine 200 mg tablet 200 mg PO TID 6 doses #6 tabs 04/14/24 (Pyridium) Allergies Allergy/AdvReac Type Severity Reaction Status Date / Time Sulfa (Sulfonamide Allergy Mild FACIAL Verified 04/14/24 03:53 Antibiotics) SWELLING Review of Systems Review of Systems Narrative Review of Systems: Review of system reviewed and within normal limits except mentioned in HPI ED Exam Narrative Physical exam: VITAL SIGNS: Reviewed. GENERAL APPEARANCE: Alert and interactive, follows commands, no acute distress, HEAD AND FACE: Non-traumatic. ENT: PERRL, pink conjunctivitis, eyelid no trauma, Mucous membrane moist. NECK: Supple, nontender, no nuchal rigidity. CHEST: No tenderness, no crepitus, no paradoxical movement, no retractions. LUNGS: Clear, well ventilated, symmetric, no rales, no wheezing, no ronchi, no stridor, good breath sounds bilaterally. HEART: Regular rate, regular rhythm, no murmur, no gallops. ABDOMEN: Soft, positive bowel sounds, nondistended, no guarding, nontender, no rebound, no masses, RECTAL: Deferred. GENITAL: Deferred. NEUROLOGICAL: Gross motor function intact sensory function intact, Appropriate for age. MUSCULOSKELETAL: low back nontender, full range of motion. EXTREMITIES: Nontender, full range of motion. SKIN: Color pink, dry, no rash, no lacerations, no abrasions, no contusions. LYMPHATICS: Deferred. Course Quality Measures none Orders Category Date Time Status CBC [CBC] Stat Lab 06/16/24 15:48 Completed CMP [Comprehensive Metabolic Panel] Stat Lab 06/16/24 15:48 Completed UA, C/S IF [Urinalysis, C/S if Indicated] Stat Lab 06/16/24 17:20 Completed Ondansetron Odt [Zofran Odt] Med 06/16/24 15:28 Discontinued 4 mg PO X1 ONE Vital Signs Vital signs: Vital Signs Temperature 99.1 F 06/16/24 15:13 Pulse Rate 89 06/16/24 15:13 Respiratory Rate 18 06/16/24 15:13 Blood Pressure 114/74 06/16/24 15:13 Pulse Oximetry (%) 98 06/16/24 15:13 Oxygen Delivery Method Room Air 06/16/24 15:13 Nausea/Vomiting/Diarrhea MDM Narrative MDM Narrative:: Patient eloped from the emergency room Patient data External records reviewed:: None Clinical information provided by:: patient Social determinants that could affect healthcare access:: none Patient has the following chronic illnesses:: Hypothyroidism, schizophrenia How is presenting disease/condition affected by chronic disease/condition?: exacerbated by Evaluation data The following diagnostics were reviewed and interpreted by me:: lab results Lab and/or radiology exams considered but not ordered:: None Interpretation Summary: Patient's workup all came back unremarkable. Medications / Prescriptions Medications / Prescriptions considered but not ordered:: None Medication administrations:: Medication Administration History Discontinued Medications Ondansetron HCl (Ondansetron Odt 4 Mg Tabrap) 4 mg PO X1 ONE; Protocol Stop: 06/16/24 15:29 Last Admin: 06/16/24 15:34 Dose: 4 mg Documented By: Zofran Consultations Consultation(s) initiated? (list below): No Diagnosis Nausea Differential Diagnosis: traveler's diarrhea, gastroenteritis and dehydration Most likely diagnosis given after review of the tests above:: Gastroenteritis Admission Indicated Admission indicated?: not indicated Admission Request Was there a request for admission?: No Admission Attestation Admission request attestation: Elopement Disposition Plan Disposition Plan: other (specify) (Elopement) Discharge Plan Plan Patient Disposition: Elopement Prescriptions/Referrals Prescriptions/Med Rec: No Action benztropine 0.5 mg Tablet 1 mg PO BID oxybutynin chloride 10 mg Tablet Extended Release 24hr 5 mg PO HS omeprazole 20 mg Tablet,Delayed Release (Dr/Ec) 20 mg PO QDAY atorvastatin [Lipitor] 10 mg Tablet 10 mg PO QDAY clonazepam 1 mg Tablet 1 mg PO BID terbinafine HCl 250 mg Tablet 250 mg PO QDAY lithium carbonate 300 mg Capsule 300 mg PO HS divalproex 500 mg Tablet Extended Release 24 Hr 500 mg PO BID haloperidol 10 mg Tablet 10 mg PO QDAY PRN (Reason: Agitation) ibuprofen 200 mg Tablet 200 mg PO BID PRN (Reason: Pain) cholecalciferol (vitamin D3) [Vitamin D3] 50 mcg (2,000 unit) Capsule 50 mcg PO QDAY Latuda 20 mg Tablet 20 mg PO HS Latuda 120 mg Tablet 120 mg PO QDAY levothyroxine 112 mcg tablet 100 mcg PO ACBR esomeprazole magnesium [Nexium] 20 mg capsule,delayed release(DR/EC) 20 mg PO QDAY Qty: 20 0RF ibuprofen 600 mg tablet 600 mg PO Q6H Qty: 30 0RF phenazopyridine [Pyridium] 200 mg tablet 200 mg PO TID Qty: 6 0RF Referrals: No Primary/Family,Physician [Primary Care Provider] - In 1 week Problem List Clinical Impression: Gastroenteritis Patient/Caregiver Discharge Instructions Print Language: Spanish
[2024-06-16] MEDS: ONDANSETRON ODT 4 MG TABRAP PO (15:34)
[2024-06-16 16:15] LABS: Basophils % (Auto) 0 % (0-2.5); Eosinophils % (Auto) 0 % (0-10); Hematocrit 36.1 % (36.0-46.0); Hemoglobin 11.8 g/dL (12.0-16.0); Immature Granulocytes % (Auto) 0 % (0-0); Immature Granulocytes Auto 0.02 Thou/mm3 (0.00-0.00); Lymphocytes # (Auto) 2.4 Thou/mm3 (1.0-4.8); Lymphocytes % (Auto) 47 % (10-50); Mean Corpuscular HGB Conc 32.7 g/dl (31.0-37.0); Mean Corpuscular Hemoglobin 27.6 pg (25.0-35.0); Mean Corpuscular Volume 85 fL (80-100); Monocytes # (Auto) 0.4 Thou/mm3 (0.0-0.8); Monocytes % (Auto) 7 % (0-12); Neutrophils # (Auto) 2.3 Thou/mm3 (1.8-7.7); Neutrophils % (Auto) 46 % (37-80); Nucleated Red Blood Cell % 0 /100 WBC (0); Platelet Count 236 Thou/mm3 (140-440); RDW Standard Deviation 46.1 fL (36.4-46.3); Red Blood Count 4.27 Miln/mm3 (4.00-5.20); White Blood Count 5.1 Thou/mm3 (3.6-11.0)
[2024-06-16 16:33] LABS: Alanine Aminotransferase 10 U/L (10-49); Albumin, Serum 4.2 gm/dL (3.4-4.8); Albumin/Globulin Ratio 1.8 (1.2-2.2); Alkaline Phosphatase 88 U/L (46-116); Anion Gap 9 (7-16); Aspartate Amino Transferase 17 U/L (0-34); BUN/Creatinine Ratio 13 Ratio (12-20); Bilirubin,Total 0.2 mg/dL (0.3-1.2); Blood Urea Nitrogen 14 mg/dL (9-23); Calcium 9.2 mg/dL (8.3-10.6); Calcium (Corrected) 9.2 mg/dL (8.5-10.1); Carbon Dioxide 24.2 mMol/L (20.0-31.0); Chloride 109 mMol/L (98-107); Creatinine (Component) 1.1 mg/dL (0.6-1.3); Estimated Creatinine Clearance 53.9 mL/min (>60); Globulin 2.3 gm/dL (2.3-3.5); Glucose 97 mg/dL (74-106); Osmolality,Calculated 283 (275-295); Potassium 4.3 mMol/L (3.4-5.1); Sodium 142 mMol/L (136-145); Total Protein 6.5 gm/dL (5.7-8.2); eGFR 58 See Note
[2024-06-16 17:31] LABS: Collection Type, Urine Clean Catch
[2024-06-16 17:36] LABS: Bilirubin,Urine Negative (Negative); Blood,Urine Negative (Negative); Clarity,Urine Clear (Clear/Hazy); Color,Urine Lt-Yellow (Lt Yel-Yel); Culture Indicated,Urine Not Indicated; Glucose, Urine Negative (Negative); Ketones,Urine Negative (Negative); Leukocyte Esterase,Urine Positive (Negative); Nitrite,Urine Negative (Negative); PH,Urine 6.5 (5.0-7.0); Protein,Urine 1+ (Neg - Trace); RBC,Urine 13 /hpf (0-3); Squamous Epithelial Cell,Urine 1 /hpf (0-5); Urobilinogen,Urine Negative mg/dL (0.0-1.0); WBC,Urine 7 /hpf (0-5)
--- NOTE | 2024-06-16 19:04 | PC.NURSE ---
no answer at er lobby or outside er to be re evaluated by provider.
--- NOTE | 2024-06-16 19:18 | PC.NURSE ---
NO ANSWER AT ER LOBBY OR OUTSIDE ER.
== END 2024-06-16 19:18 | disposition left against medical advice (07) ==
PROVIDERS: Nurse Practitioner Family; Emergency Provider Emergency Medicine
DX: K52.9 Noninfective gastroenteritis and colitis, unspecified (principal); E03.9 Hypothyroidism, unspecified; F20.9 Schizophrenia, unspecified; R56.9 Unspecified convulsions; Z88.2 Allergy status to sulfonamides; Z53.29 Procedure and treatment not carried out because of patient's decision for other reasons
CPT/HCPCS: 36415; 80053; 81001; 85025; 99281; Q0162

== ENCOUNTER 2025-02-12 11:56 | Emergency (ER) | payer MEDICARE, MEDICAID, SELFPAY ==
[2025-02-12 11:58] VITALS: BP 122/81; PULSE 89; RESP 18; TEMP 37; O2SAT 97; BMI 29.2
--- NOTE | 2025-02-12 12:09 | EKG_ITS ---
[facility] Test Date: 2025-02-12 Pat Name: MICHELLE SAXENA Department: Room: - Gender: Female Scientific Laboratory Supervisor: : [id number] Requested By: Lux Montoya Order Number: [id number] Reading MD: Lux Montoya Measurements Intervals Holmes Rate: 85 P: 59 AR: 147 QRS: 14 QRSD: 93 T: 33 QT: 388 QTc: 462 Interpretive Statements SINUS RHYTHM MODERATE ST DEPRESSION [0.05+ mV ST DEPRESSION] Compared to ECG 10/01/2022 11:31:36 ST (T wave) deviation now present T-wave abnormality no longer present /store/S0/[id number].pdf
--- NOTE | 2025-02-12 12:09 | XR_ITS ---
EXAMINATION: AP chest single view TECHNIQUE: Sitting AP chest portable single view Date and time: February 12, 2025, 12:18 p.m. INDICATIONS: Chest pain today. FINDINGS: Lordotic chest. Normal heart size. Lungs are clear. Prominent osteopenia IMPRESSION: No active disease
--- NOTE | 2025-02-12 12:12 | EDNOTE_ITS ---
<Statement entered by Angela Pinto MD - 02/12/25 16:00> As co-signing physician, I was present and available for consult prn. I concur with the plan and care as documented by the midlevel provider. ED General RME/HPI General Chief complaint: Weakness Stated complaint: GENERALIZED WEAKNESS Time Seen by Provider: 02/12/25 12:02 Arrival date/time: 02/12/25 11:56 CC: Chest pain HPI ongoing for the past 3 days, patient states I thought I was having a heart attack . Patient denies fever chills shortness of breath or difficulty breathing. Related Data Home Medications ?Medication ?Instructions ?Recorded ?Confirmed benztropine 0.5 mg tablet 1 mg PO BID 08/06/19 1 oxybutynin chloride 10 mg 5 mg PO HS 08/06/19 02/27/21 tablet,extended release 24 hr omeprazole 20 mg tablet,delayed 20 mg PO QDAY 04/14/20 02/27/21 release atorvastatin 10 mg tablet (Lipitor) 10 mg PO QDAY 02/0702/27/21 cholecalciferol (vitamin D3) 50 50 mcg PO QDAY 1 02/27/21 mcg (2,000 unit) capsule (Vitamin D3) clonazepam 1 mg tablet 1 mg PO BID 02/27/21 1 divalproex 500 mg tablet,extended 500 mg PO BID 02/27/21 release 24 hr haloperidol 10 mg tablet 10 mg PO QDAY PRN Agitation 02/27/21 02/27/21 ibuprofen 200 mg tablet 200 mg PO BID PRN Pain 02/2702/27/21 levothyroxine 112 mcg tablet 100 mcg PO ACBR 02/27/21 02/27/21 lithium carbonate 300 mg capsule 300 mg PO HS 02/27/21 02/27/21 lurasidone 120 mg tablet (Latuda) 120 mg PO QDAY 02/2702/27/21 lurasidone 20 mg tablet (Latuda) 20 mg PO HS 02/27/21 02/27/21 terbinafine HCl 250 mg tablet 250 mg PO QDAY 02/27/21 02/27/21 Previous Rx's ?Medication ?Instructions ?Recorded esomeprazole magnesium 20 mg 20 mg PO QDAY #20 caps capsule,delayed release (Nexium) ibuprofen 600 mg tablet 600 mg PO Q6H #30 tabs 09/05 phenazopyridine 200 mg tablet 200 mg PO TID 6 doses #6 tabs 04/14/24 (Pyridium) Allergies Allergy/AdvReac Type Severity Reaction Status Date / Time Sulfa (Sulfonamide Allergy Mild FACIAL Verified 04/14/24 03:53 Antibiotics) SWELLING Review of Systems Review of Systems Narrative Review of Systems: GEN: No fever, no chills, no weight loss EYES: No discharge, no visual changes, no pain HEENT: No ear pain, no congestion, no sore throat PULM: No shortness of breath, no cough, no congestion CV: + chest pain, no dyspnea on exertion, no palpitations GI: No nausea, no vomiting, no diarrhea, no pain, no constipation : No frequency, no urgency, no dysuria MUSC/SKEL: No joint pain, no back pain SKIN: No rash PSYCH: No hallucinations, no depression HEME/LYMPH: No easy bleeding or bruising tendencies NEURO: No weakness, no headache ED Exam Narrative Physical exam: [General: No other any acute distress Head normocephalic HEENT: Within acceptable limits Neck is supple nontender Chest equal chest rise nontender to palpation Respiratory: Clear to auscultation no wheezes crackles or rubs CV: Rate rhythm is regular no murmurs rubs or clicks Abdomen is soft nontender no masses positive bowel sounds all 4 quadrants Back: No CVA tenderness no spinous process tenderness from cervical spine thoracic and lumbar spine Skin: Intact no petechiae rash induration ulceration or crepitus Extremities: Moving all extremity against resistance cap refill less than 2 seconds neurosensory intact Neuro: Awake alert oriented x3 Glascow coma 15 no focal deficits] Course Course Course Narrative: Heart score of 1 low index of suspicion patient be discharged home Quality Measures none Orders Category Date Time Status EKG (ED ONLY) *Do not use* NOW Care 02/12/25 12:09 Completed EKG (ED Only) Stat Exams 02/12/25 12:09 Draft XR chest 1V Stat Exams 02/12/25 12:09 Completed B-Type Natriuretic Peptide Stat Lab 02/12/25 12:28 Completed CBC Stat Lab 02/12/25 12:28 Completed Comprehensive Metabolic Panel Stat Lab 02/12/25 12:28 Completed Drug Screen,Urine Stat Lab 02/12/25 12:20 Completed LDH (Lactate Dehydrogenase) Stat Lab 02/12/25 12:28 Completed Magnesium Stat Lab 02/12/25 12:28 Completed Partial Thromboplastin Time Stat Lab 02/12/25 12:28 Completed Prothrombin Time with INR Stat Lab 02/12/25 12:28 Completed Troponin I Stat Lab 02/12/25 12:28 Completed Urinalysis, C/S if Indicated Stat Lab 02/12/25 12:20 Completed Vital Signs Vital signs: Vital Signs Temperature 98.6 F 02/12/25 11:58 Pulse Rate 89 02/12/25 11:58 Respiratory Rate 18 02/12/25 11:58 Blood Pressure 122/81 02/12/25 11:58 Pulse Oximetry (%) 97 02/12/25 11:58 Oxygen Delivery Method Room Air 02/12/25 11:58 Discharge Plan Plan Patient Disposition: HOME (Self Care) Patient condition on transfer: Stable Prescriptions/Referrals Prescriptions/Med Rec: No Action benztropine 0.5 mg Tablet 1 mg PO BID oxybutynin chloride 10 mg Tablet Extended Release 24hr 5 mg PO HS omeprazole 20 mg Tablet,Delayed Release (Dr/Ec) 20 mg PO QDAY atorvastatin [Lipitor] 10 mg Tablet 10 mg PO QDAY clonazepam 1 mg Tablet 1 mg PO BID terbinafine HCl 250 mg Tablet 250 mg PO QDAY lithium carbonate 300 mg Capsule 300 mg PO HS divalproex 500 mg Tablet Extended Release 24 Hr 500 mg PO BID haloperidol 10 mg Tablet 10 mg PO QDAY PRN (Reason: Agitation) ibuprofen 200 mg Tablet 200 mg PO BID PRN (Reason: Pain) cholecalciferol (vitamin D3) [Vitamin D3] 50 mcg (2,000 unit) Capsule 50 mcg PO QDAY Latuda 20 mg Tablet 20 mg PO HS Latuda 120 mg Tablet 120 mg PO QDAY levothyroxine 112 mcg tablet 100 mcg PO ACBR esomeprazole magnesium [Nexium] 20 mg capsule,delayed release(DR/EC) 20 mg PO QDAY Qty: 20 0RF ibuprofen 600 mg tablet 600 mg PO Q6H Qty: 30 0RF phenazopyridine [Pyridium] 200 mg tablet 200 mg PO TID Qty: 6 0RF Referrals: No Primary/Family,Physician [Primary Care Provider] - In 1 week Problem List Clinical Impression: Chest pain Patient/Caregiver Discharge Instructions Education Materials: ED Chest Pain, Uncertain Cause Additional Instructions: Follow-up with your primary care doctor if is worsening of symptoms return the emergency room for reevaluation. Print Language: Sinhala Stand Alone Forms: Geraldine Award Info., Patient Portal Info Letter PA/RAMONA Supervising Physician PA/RAMONA Supervising Physician: Lux GARZA Clinical Information Provided by: patient Medical Records reviewed [facility] Meds/Rx considered, not ordered None Labs/Rad/Tests considered, not ordered None Chronic Illness/Social Conditions Explain: Schizophrenia bipolar disorder EKG Interpretation EKG #1: EKG Interpretation: EKG performed at 1238 shows a ventricular rate of 84 CA interval 147 QRS of 98 QTc of 435 no sinus rhythm with occasional PVC of V5 baseline wander Labs Labs: interpreted by [facility] Lab(s) Interpretation(s): CBC shows stable anemia no leukocytosis no thrombocytopenia Coags within acceptable limits CMP shows no significant electrolyte imbalances renal impairment transaminitis or T. bili elevation Troponin is unremarkable BNP is undetectable Urine is negative for UTI UDS is negative. Imaging Imaging interpretation: interpreted by [facility] Imaging Interpretation(s): Chest x-ray is negative
[2025-02-12 12:13] VITALS: PULSE 80; RESP 18; O2SAT 98; BMI 27.4
[2025-02-12 12:19] VITALS: BP 115/54; PULSE 84; RESP 18; TEMP 36.7; O2SAT 97
[2025-02-12 12:37] LABS: Collection Type, Urine Clean Catch
[2025-02-12 12:37] LABS: Basophils # (Auto) 0.0 Thou/mm3 (0.0-0.2); Basophils % (Auto) 1 % (0-2.5); Eosinophils # (Auto) 0.0 Thou/mm3 (0.0-0.5); Eosinophils % (Auto) 0 % (0-10); Hematocrit 32.9 % (36.0-46.0); Hemoglobin 10.8 g/dL (12.0-16.0); Immature Granulocytes Auto 0.06 Thou/mm3 (0.00-0.00); Lymphocytes # (Auto) 1.8 Thou/mm3 (1.0-4.8); Lymphocytes % (Auto) 38 % (10-50); Mean Corpuscular HGB Conc 32.8 g/dl (31.0-37.0); Mean Corpuscular Hemoglobin 29.0 pg (25.0-35.0); Mean Corpuscular Volume 88 fL (80-100); Monocytes # (Auto) 0.4 Thou/mm3 (0.0-0.8); Monocytes % (Auto) 9 % (0-12); Neutrophils # (Auto) 2.5 Thou/mm3 (1.8-7.7); Neutrophils % (Auto) 51 % (37-80); Nucleated Red Blood Cell # 0.00 Thou/mm3 (0.00-0.00); Nucleated Red Blood Cell % 0 /100 WBC (0); Platelet Count 207 Thou/mm3 (140-440); RDW Standard Deviation 46.3 fL (36.4-46.3); Red Blood Count 3.73 Miln/mm3 (4.00-5.20); White Blood Count 4.8 Thou/mm3 (3.6-11.0)
[2025-02-12 12:44] LABS: Bilirubin,Urine Negative (Negative); Blood,Urine Negative (Negative); Clarity,Urine Clear (Clear/Hazy); Color,Urine Lt-Yellow (Lt Yel-Yel); Culture Indicated,Urine Not Indicated; Glucose, Urine Negative (Negative); Ketones,Urine Negative (Negative); Leukocyte Esterase,Urine Positive (Negative); Nitrite,Urine Negative (Negative); PH,Urine 6.0 (5.0-7.0); Protein,Urine Negative (Neg - Trace); RBC,Urine < 1 /hpf (0-3); Specific Gravity,Urine 1.009 (1.001-1.035); Squamous Epithelial Cell,Urine < 1 /hpf (0-5); Urobilinogen,Urine Negative mg/dL (0.0-1.0); WBC,Urine 4 /hpf (0-5)
[2025-02-12 12:55] LABS: INR 1.0 (0.9-1.3); Partial Thromboplastin Time 24.0 Seconds (22.0-36.0); Prothrombin Time 10.5 Seconds (9.0-12.2)
[2025-02-12 12:57] LABS: Amphetamine/Methamp Scrn,U Negative (Negative); Barbiturate Screen,Urine Negative (Negative); Benzodiazepines Screen,Urine Negative (Negative); Benzoylecgonine Screen, Ur Negative (Negative); Fentanyl Screen,Urine Negative (Negative); Opiate Screen,Urine Negative (Negative); THC Screen,Urine Negative (Negative)
[2025-02-12 12:58] LABS: B-Type Natriuretic Peptide < 20 pg/mL (0-100)
[2025-02-12 13:04] LABS: Alanine Aminotransferase 45 U/L (10-49); Albumin, Serum 4.4 gm/dL (3.4-4.8); Albumin/Globulin Ratio 2.2 (1.2-2.2); Alkaline Phosphatase 128 U/L (46-116); Anion Gap 11 (7-16); Aspartate Amino Transferase 27 U/L (0-34); BUN/Creatinine Ratio 15 Ratio (12-20); Bilirubin,Total 0.2 mg/dL (0.3-1.2); Blood Urea Nitrogen 12 mg/dL (9-23); Calcium 9.5 mg/dL (8.3-10.6); Calcium (Corrected) 9.5 mg/dL (8.5-10.1); Carbon Dioxide 22.8 mMol/L (20.0-31.0); Chloride 110 mMol/L (98-107); Creatinine (Component) 0.8 mg/dL (0.6-1.3); Estimated Creatinine Clearance 70.3 mL/min (>60); Globulin 2.0 gm/dL (2.3-3.5); Glucose 106 mg/dL (74-106); Magnesium 1.8 mg/dL (1.6-2.6); Osmolality,Calculated 286 (275-295); Potassium 4.2 mMol/L (3.4-5.1); Sodium 144 mMol/L (136-145); Total Protein 6.4 gm/dL (5.7-8.2); Troponin I < 0.020 ng/mL (0.0-0.045); eGFR > 60 See Note
[2025-02-12 13:29] LABS: LDH (Lactate Dehydrogenase) 219 U/L (120-246)
[2025-02-12 15:14] VITALS: BP 117/65; PULSE 76; RESP 18; TEMP 36.9; O2SAT 99
== END 2025-02-12 15:27 | disposition home or self-care (01) ==
PROVIDERS: Registered Nurse General Practice; Emergency Provider Emergency Medicine
DX: R07.9 Chest pain, unspecified (principal); R94.31 Abnormal electrocardiogram [ECG] [EKG]
CPT/HCPCS: 36415; 71045; 80053; 80307; 81001; 83615; 83735; 83880; 84484; 85025; 85610; 85730; 93005; 99284